=== PATIENT | male | born 1980 | race Caucasian/White ===

== ENCOUNTER 2024-07-01 08:25 | Outpatient (CLI) | payer OTHER, SELFPAY ==
--- NOTE | ~2024-07-01 | MR_ITS ---
MRI of the right knee Clinical history: Pain Technique: Coronal proton density and proton density-weighted images, sagittal proton-density and T2 fat-sat images, and axial proton-density fat-saturated images were acquired. Findings: Anterior and posterior cruciate ligaments are intact. Medial collateral ligament and the la teral collateral ligament complex are intact. Popliteus tendon is intact. Medial and lateral menisci are intact, without evidence of tear. Articular cartilage is well preserved throughout the knee. Bone marrow signals are unremarkable. Extensor mechanism is intact. There is minimal joint effusion. No significant Collado's cyst. There is mild edema of the quadriceps fat pad. Impression: Mild edema of the quadriceps fat pad could reflect impingement. No other significant findings. Reviewed, dictated and finalized at [facility]. Impression: Mild edema of the quadriceps fat pad could reflect impingement. No other significant findings.
== END 2024-07-01 08:26 | disposition home or self-care (01) ==
LOC: MICIMG 08:26
PROVIDERS: PCP Nurse Practitioner Family; Visit Provider Nurse Practitioner Family
DX: M79.4 Hypertrophy of (infrapatellar) fat pad (principal)
CPT/HCPCS: 73721

== ENCOUNTER 2024-08-30 09:45 | Outpatient (RCR) | payer OTHER, SELFPAY ==
--- NOTE | 2024-07-12 16:43 | BUPTOPEVAL1 ---
Assessment and note entered by Karen Park, PT Evaluation Information Assessment Status Evaluation Diagnosis pain in right knee ICD-10 Condition Codes (PT) Pain in right knee M25.561 Other ICD-10 Condition Codes ( right knee instability M25.361, sprain/strain PT) ligament/fasica S83.91xA Onset ~6 weeks ago Subjective Information Pt was walking on his driveway on right knee. three weeks later was turning and hit the ground because of intense pain. Can't kneel unless he gets down slowly, can't squat. Feels pain on the inside, was trying to climb a ladder after chasing a calf in a pasture and was unable. MRI unremarkable Has not tried knee braces because walking is fine. After chasing a calf today pain and pain was up to a 3/10 Reports highest pain is with putting on socks in the morning and with pushing shoe off with other foot up to a 4-5/10 Reported Pain Level Pain Score 1: Self Report Assessment PT Clinical Summary Pt presents with complaints of right knee pain that ranges from 0-5/10. Is able to walk and run in a straight line, but squatting, kneeling, bending beyond 90 degrees, positions wiht torque and pull on the joint all cause increased pain. Demonstrates significant tibial rotation compared to unaffected leg. With external rotation and stabilization the pain resolves in weight bearing squats. All of which suggest right knee joint instability. Pt will benefit from physical therapy in order to address deficits and return to PLOF without pain. Plan of Care Interventions Electrical Stimulation,Gait Training,Hot Pack/Cold Pack,Manual Therapy,Neuro Re-education,Patient/ Caregiver Education,Therapeutic Activities, Therapeutic Exercise,Self-Care/Home Management, Ultrasound,Other Other Interventions Taping, bracing PT Services Indicated Yes Treatment Frequency and 1-2x weekly x 8 visits Duration These treatments will address the objective and functional deficits as defined above. The patient will be advanced safely and appropriately in order for the patient to progress towards his/her prior level of function. Additional exercises will be introduced and as well as a comprehensive home exercise program upon discharge, if needed, to ensure carryover of functional gains achieved in the clinic. This treatment plan has been reviewed and agreement upon by the patient.
--- NOTE | 2024-07-12 16:43 | OPREHPOC ---
Outpatient Therapy Plan of Care This is a Multidisciplinary Plan of Care that may contain components documented by all disciplines (PT, OT, and ST.) PT Problem 1 PT Problem #1 Knowledge Deficit PT Goal 1 Goal / Goal Update Pt will be independent in HEP Pt will verbalize understanding of diagnosis and prognosis Target Visit 4 PT Problem 2 PT Problem #2 Pain PT Goal 1 Goal / Goal Update Pt will report greatest pain level at 3/10 or less to improve ADLs and activities Target Visit 4 PT Goal 2 Goal / Goal Update Pt will report resolution of pain to return to PLOF Target Visit 8 PT Problem 3 PT Problem #3 Impaired Functional Mobility PT Goal 1 Goal / Goal Update Pt will report ability to don socks in the morning without pain Target Visit 4 PT Goal 2 Goal / Goal Update Pt will report ability to kneel on knee without pain Target Visit 8
--- NOTE | 2024-09-02 08:52 | PTOPDC ---
Assessment and note entered by Karen Park, PT Evaluation Information Assessment Status Discharge Diagnosis pain in right knee ICD-10 Condition Codes (PT) Pain in right knee M25.561 Other ICD-10 Condition Codes ( right knee instability M25.361, sprain/strain PT) ligament/fasica S83.91xA Onset ~6 weeks ago Subjective Information Was up in the attic this weekend and had no difficulty getting around. Has not had to wear the brace accept. Kneeling, squatting, climbing ladder no issues. Feels like if squatted for long period may be stiff but feels like his normal stiffness. Is able to put socks and shoes on without difficulty. Able to push tennis shoes off without locking or issue. Reports 100% improved overall Assessment PT Clinical Summary Pt has done very well with therapy and reports feeling 100% improved. States has been able to squat and do work activities, don socks without pain. Pt ROM, strength and functional goals have all been met. He continues to have at worst a 2/10 pain but mostly is a 0/10 currently. He has been issued a knee brace for as needed high level activities, and his HEP has been updated. Thus patient is being discharged for completion of POC. Plan of Care PT Services Indicated No
== END 2024-09-02 08:54 | disposition home or self-care (01) ==
LOC: ANHHIPT 09:45
PROVIDERS: PCP Nurse Practitioner Family; Visit Provider Nurse Practitioner Family
DX: M25.561 Pain in right knee (principal)
CPT/HCPCS: 97035; 97110; 97161; 97530; 97750